=== PATIENT | male | born 1955 | race Caucasian/White ===

== ENCOUNTER 2021-06-11 20:00 | Outpatient (CLI) | payer MEDICARE, MEDICAID, SELFPAY | END 2021-06-11 20:01 | disposition home or self-care (01) | LOC: SLEEP 06-12 10:19 | PROVIDERS: Family Provider Internal Medicine; Visit Provider Internal Medicine | DX: G47.33 Obstructive sleep apnea (adult) (pediatric) (principal) | CPT/HCPCS: 95810 ==

== ENCOUNTER 2023-05-22 10:19 | Outpatient (CLI) | payer MEDICARE, MEDICAID, SELFPAY ==
--- NOTE | 2023-05-22 | CT_ITS ---
[facility] LUNG CANCER SCREENING TECHNIQUE: Noncontrast CT of the chest with coronal and sagittal reformatted images. CLINICAL INFORMATION: HX OF TOBACCO USE COMPARISON: None. DLP: 62.[address] scans at [facility] use at least one of these dose optimization techniques: automated exposure control; mA and/or kV adjustment per patient size (includes targeted exams where dose is matched to clinical indication); or iterative reconstruction. FINDINGS: Moderate chronic emphysematous changes. No acute pulmonary infiltrates. Subsegmental atelectasis in the lung bases. A few subcentimeter nodules in RIGHT upper lobe. 4 mm nodule in the RIGHT middle lobe. A few tiny nodules in the LEFT upper lobe some in subpleural location. Normal caliber thoracic aorta. No mediastinal or hilar lymphadenopathy. No axillary lymphadenopathy. Normal GE junction. Cholecystectomy clips. Adrenal glands are normal. Mild thoracic curve. Mild thoracic kyphosis. IMPRESSION: LUNG-RADS: 2-Benign Appearance or Behavior FOLLOW UP: 12 Month: Continue annual screening with [facility] CT/CT lung screening [id number] IMPRESSION: Central lobar emphysema. LUNGRADS category 2
--- NOTE | 2023-05-22 10:42 | CT_ITS ---
WS: [id number] CT CHEST 05/22/2023 HISTORY: 49 year smoking history. Screening examination. Initial examination. TECHNIQUE: Thin section axial images through the chest without intravenous contrast enhancement with coronal and sagittal reconstructions. FINDINGS: Within the mediastinum there are old reactive lymph nodes with hilar fat measuring from 2 to 16 mm. Calcified granulomatous disease within the mediastinum and left hilum. No hilar adenopathy. Coarse reticular interstitial lung opacities throughout both lungs with multiple areas of lucency con sistent with central lobar emphysema. This is associated with linear fibrotic scarring in the lung ba ses. Partially calcified 4 mm nodule anterior right upper lobe axial image 186. 2 mm nodule left upper lobe peripherally axial image 99. No pleural abnormality. Mild to moderate degenerative spondylosis in the thoracic spine.
== END 2023-05-22 10:20 | disposition home or self-care (01) ==
PROVIDERS: Family Provider Internal Medicine; PCP Internal Medicine; Visit Provider Internal Medicine
DX: Z12.2 Encounter for screening for malignant neoplasm of respiratory organs (principal); Z87.891 Personal history of nicotine dependence
CPT/HCPCS: 71271

== ENCOUNTER 2024-03-02 09:49 | Outpatient (CLI) | payer MEDICARE, MEDICAID, SELFPAY ==
--- NOTE | 2024-03-02 09:58 | XRR_ITS ---
PROCEDURE INFORMATION: Exam: XR Right Hand Exam date and time: 03/02/2024 10:02 AM Age: 68 years old Clinical indication: Pain; Right; Patient HX: Trauma to hand 2 months ago; Additional info: Pain in joints of R hand TECHNIQUE: Imaging protocol: Radiologic exam of the right hand. Views: 3 or more views. COMPARISON: No relevant prior studies available. FINDINGS: Bones/joints: No erosive changes.. No acute osseous, joint, or soft tissue abnormality. Degenerative changes of the interphalangeal joints, most severe at the 5th DIP. Soft tissues: Normal. XR/XR hand RT min 3V* [id number] IMPRESSION: No acute findings.
== END 2024-03-02 09:50 | disposition home or self-care (01) ==
LOC: RAD 09:53
PROVIDERS: Family Provider Internal Medicine; PCP Internal Medicine; Visit Provider Internal Medicine
DX: M25.541 Pain in joints of right hand (principal)
CPT/HCPCS: 73130

== ENCOUNTER → 2024-04-12 14:44 | Outpatient (BNVA) | payer MEDICARE, MEDICAID, SELFPAY | PROVIDERS: Family Provider Internal Medicine; PCP Internal Medicine; Visit Provider Nurse Practitioner Family | DX: D48.5 Neoplasm of uncertain behavior of skin (principal); L82.0 Inflamed seborrheic keratosis; D22.5 Melanocytic nevi of trunk; L81.4 Other melanin hyperpigmentation | CPT/HCPCS: 11102; 17110; 99203 ==

== ENCOUNTER → 2024-05-19 13:15 | Outpatient (BNVA) | payer MEDICARE, MEDICAID, SELFPAY | PROVIDERS: Family Provider Internal Medicine; PCP Internal Medicine; Visit Provider Nurse Practitioner Family | DX: D48.5 Neoplasm of uncertain behavior of skin (principal); D22.5 Melanocytic nevi of trunk; L81.4 Other melanin hyperpigmentation | CPT/HCPCS: 11102; 99213 ==

== ENCOUNTER → 2024-08-12 15:15 | Outpatient (BNVA) | payer MEDICARE, MEDICAID, SELFPAY | PROVIDERS: Family Provider Internal Medicine; PCP Internal Medicine; Visit Provider Nurse Practitioner Family | DX: D48.5 Neoplasm of uncertain behavior of skin (principal); L91.8 Other hypertrophic disorders of the skin; L23.9 Allergic contact dermatitis, unspecified cause; D22.5 Melanocytic nevi of trunk | CPT/HCPCS: 11102; 17110; 99213 ==

== ENCOUNTER → 2024-09-13 14:42 | Outpatient (BNVA) | payer MEDICARE, MEDICAID, SELFPAY | PROVIDERS: Family Provider Internal Medicine; PCP Internal Medicine; Visit Provider Podiatrist Foot & Ankle Surgery | DX: L60.3 Nail dystrophy (principal); G62.9 Polyneuropathy, unspecified; E11.42 Type 2 diabetes mellitus with diabetic polyneuropathy; Z79.4 Long term (current) use of insulin | CPT/HCPCS: 11721; 99203 ==

== ENCOUNTER → 2024-11-16 15:11 | Outpatient (BNVA) | payer MEDICARE, MEDICAID, SELFPAY | PROVIDERS: Family Provider Internal Medicine; PCP Internal Medicine; Visit Provider Podiatrist Foot & Ankle Surgery | DX: L60.3 Nail dystrophy (principal); G62.9 Polyneuropathy, unspecified; E11.42 Type 2 diabetes mellitus with diabetic polyneuropathy; Z79.4 Long term (current) use of insulin | CPT/HCPCS: 11721 ==

== ENCOUNTER → 2024-12-07 09:33 | Outpatient (BNVA) | payer MEDICARE, MEDICAID, SELFPAY | PROVIDERS: Family Provider Internal Medicine; PCP Internal Medicine; Visit Provider Student in an Organized Health Care Education/Training Program | DX: M25.521 Pain in right elbow; M77.01 Medial epicondylitis, right elbow | CPT/HCPCS: 73080; 99203 ==

== ENCOUNTER → 2025-01-18 14:50 | Outpatient (BNVA) | payer MEDICARE, MEDICAID, SELFPAY | PROVIDERS: Family Provider Internal Medicine; PCP Internal Medicine; Visit Provider Podiatrist Foot & Ankle Surgery | DX: E11.42 Type 2 diabetes mellitus with diabetic polyneuropathy (principal); L60.3 Nail dystrophy; G62.9 Polyneuropathy, unspecified; Z79.4 Long term (current) use of insulin | CPT/HCPCS: 11721 ==

== ENCOUNTER → 2025-03-28 12:50 | Outpatient (BNVA) | payer MEDICARE, MEDICAID, SELFPAY | PROVIDERS: Family Provider Internal Medicine; PCP Internal Medicine; Visit Provider Podiatrist Foot & Ankle Surgery | DX: E11.42 Type 2 diabetes mellitus with diabetic polyneuropathy (principal); L60.3 Nail dystrophy; G62.9 Polyneuropathy, unspecified; Z79.4 Long term (current) use of insulin | CPT/HCPCS: 11721; 99213 ==

== ENCOUNTER 2025-06-10 13:41 | Outpatient (CLI) | payer MEDICARE, MEDICAID, SELFPAY ==
--- NOTE | 2025-06-10 13:50 | XRR_ITS ---
PROCEDURE INFORMATION: Exam: XR Right Foot Exam date and time: 06/10/2025 2:07 PM Age: 69 years old Clinical indication: Pain; Foot; Right; Additional info: R foot pain TECHNIQUE: Imaging protocol: Radiologic exam of the right foot. Views: 3 or more views. COMPARISON: No relevant prior studies available. FINDINGS: Bones/joints: There is amputation of the distal aspect of the 1st digit. No additional bone abnormalities documented in remainder of the foot. Soft tissues: Unremarkable XR/XR foot RT min 3V* [id number] IMPRESSION: 1. 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 2. Otherwise no acute findings.
== END 2025-06-10 13:42 | disposition home or self-care (01) ==
LOC: RAD 13:45
PROVIDERS: Family Provider Internal Medicine; PCP Internal Medicine; Visit Provider Nurse Practitioner Family
DX: M79.671 Pain in right foot (principal); Z89.411 Acquired absence of right great toe
CPT/HCPCS: 73630

== ENCOUNTER → 2025-06-16 14:51 | Outpatient (BNVA) | payer MEDICARE, MEDICAID, SELFPAY | PROVIDERS: Family Provider Internal Medicine; PCP Internal Medicine; Visit Provider Podiatrist Foot & Ankle Surgery | DX: E11.42 Type 2 diabetes mellitus with diabetic polyneuropathy (principal); L60.3 Nail dystrophy; G62.9 Polyneuropathy, unspecified; Z79.4 Long term (current) use of insulin | CPT/HCPCS: 11721 ==

== ENCOUNTER → 2025-08-15 15:09 | Outpatient (BNVA) | payer MEDICARE, MEDICAID, SELFPAY | PROVIDERS: Family Provider Internal Medicine; PCP Internal Medicine; Visit Provider Nurse Practitioner Family | DX: L82.1 Other seborrheic keratosis (principal); D22.5 Melanocytic nevi of trunk; L81.4 Other melanin hyperpigmentation; L82.0 Inflamed seborrheic keratosis; L29.89 Other pruritus | CPT/HCPCS: 11102; 17110; 99213 ==

== ENCOUNTER → 2025-08-22 12:51 | Outpatient (BNVA) | payer MEDICARE, MEDICAID, SELFPAY | PROVIDERS: Family Provider Internal Medicine; PCP Internal Medicine; Visit Provider Podiatrist Foot & Ankle Surgery | DX: E11.8 Type 2 diabetes mellitus with unspecified complications (principal); L60.3 Nail dystrophy; G62.9 Polyneuropathy, unspecified; E11.42 Type 2 diabetes mellitus with diabetic polyneuropathy; Z79.4 Long term (current) use of insulin | CPT/HCPCS: 11721 ==

== ENCOUNTER → 2025-10-24 13:31 | Outpatient (BNVA) | payer MEDICARE, MEDICAID, SELFPAY | PROVIDERS: Family Provider Internal Medicine; PCP Internal Medicine; Visit Provider Podiatrist Foot & Ankle Surgery | DX: E11.8 Type 2 diabetes mellitus with unspecified complications (principal); L60.3 Nail dystrophy; G62.9 Polyneuropathy, unspecified; E11.42 Type 2 diabetes mellitus with diabetic polyneuropathy; Z79.4 Long term (current) use of insulin | CPT/HCPCS: 11721 ==